=== PATIENT | female | born 1960 | race Caucasian/White ===

== ENCOUNTER 2020-01-28 23:01 | Emergency (ER) | payer BC, OTHER ==
[~2020-01-28] VITALS: Ht 152.4 cm; Wt 55.5 kg
[2020-01-28] MEDS ORDERED: ALBUTEROL/IPRATROPIUM 2.5MG/0.5MG, 3 ML ONE (23:24)
[2020-01-28] MEDS ORDERED: methylPREDNISolone SOD SUCC 125 MG/2 ML ONE (23:24)
[2020-01-28] MEDS ORDERED: LORazepam 2 MG/ML, 1ML ONE (23:27)
--- NOTE | 2020-01-28 23:27 | NUR ---
THIS TECH DID EKG
[2020-01-28] MEDS ORDERED: SODIUM CHLORIDE FLUSH 10ML SYR IVF ONE (23:30)
[2020-01-28] MEDS ORDERED: LORazepam 2 MG/ML, 1ML IV ONE (23:30)
[2020-01-28] MEDS ORDERED: ALBUTEROL/IPRATROPIUM 2.5MG/0.5MG, 3 ML NPPB ONE (23:30)
[2020-01-28] MEDS ORDERED: methylPREDNISolone SOD SUCC 125 MG/2 ML IV ONE (23:30)
--- NOTE | 2020-01-28 23:42 | NUR ---
Summary note: Patient came in via [facility], having worstening sob throughout the day. patient has history of copd and takes albuterol at home. [facility] gave patient 1 albuterol and 2 duo neb tx, and placed IV. Patient placed on all monitors, ekg taken, CXR taken, and medicated per [facility].
[2020-01-28 23:46] LABS: BASOPHILS # (AUTO) 0.02 x10^3/uL (0-0.1); BASOPHILS % (AUTO) 1 % (0-1); EOSINOPHILS # (AUTO) 0.07 x10^3/uL (0-0.4); EOSINOPHILS % (AUTO) 2 % (1-7); LYMPHOCYTES # (AUTO) 1.42 x10^3/uL (1-3.4); LYMPHOCYTES % (AUTO) 39 % (22-44); MD NO; MEAN CORPUSCULAR HEMOGLOBIN 35.8 pg (27.0-34.8); MEAN CORPUSCULAR HGB CONC 33.9 g/dL (32.4-35.8); MEAN CORPUSCULAR VOLUME 105.7 fL (80-100); MEAN PLATELET VOLUME 7.2 fL (7.4-10.4); MONOCYTES # (AUTO) 0.42 x10^3/uL (0.2-0.8); MONOCYTES % (AUTO) 12 % (2-9); NEUTROPHILS # (AUTO) 1.71 x10^3/uL (1.8-6.8); NEUTROPHILS % (AUTO) 47 % (42-75); PLATELET COUNT 133 x10^3/uL (130-400); RED BLOOD COUNT 4.02 x10^6/uL (3.82-5.3); RED CELL DISTRIBUTION WIDTH 14.7 % (9.6-15.2)
[2020-01-28 23:55] LABS: ALBUMIN 3.8 g/dL (3.4-5.0); ANION GAP 18 mmol/L (5-15); CALCIUM 8.6 mg/dL (8.5-10.1); CHLORIDE 101 mmol/L (98-107); CREATININE 0.46 mg/dL (0.55-1.02)
[2020-01-28 23:59] LABS: TROPONIN I < 0.015 ng/mL (0.000-0.045)
[2020-01-29] MEDS ORDERED: BENZONATATE 100 MG CAPSULE ONE (00:13)
--- NOTE | 2020-01-29 00:20 | NUR ---
PATIENT PLACED ON 2L 02, PATIENT 88% ON RA. PATIENT STATES FEELING BETTER.
[2020-01-29] MEDS ORDERED: BENZONATATE 100 MG CAPSULE PO ONE (00:30)
[2020-01-29 00:44] VITALS: BP 114/63
--- NOTE | 2020-01-29 00:57 | NUR ---
DR. GARRETT IN TO RE-EVAL PT. AND DISCUSS PLAN FOR ADMISSION. PT. IS REFUSING ADMISSION AT THIS TIME. PT. REQUESTING RX FOR MEDS TO GO HOME WITH VS. ADMISSION. DR. GARRETT DISCUSSED ALL RISKS. PT. ENCOURAGED TO COME BACK TO ED FOR ANY FURTHER CONCERNS.
[2020-01-29] MEDS ORDERED: POTASSIUM CHLORIDE 20 MEQ TAB.ER.PRT PO ONE (01:00)
[2020-01-29] MEDS ORDERED: POTASSIUM CHLORIDE 20 MEQ TAB.ER.PRT ONE (01:03)
--- NOTE | 2020-01-29 01:13 | NUR ---
PATIENT STATES SHE DOES NOT WANT TO GO [facility] BUT NEEDS TO GO HOME TO HER . SHE STATES SHE UNDERSTANDS THE RISKS AND SIGNED THE AMA PAPERS. PATIENT GIVEN PRESCRIPTIONS AND PAPERWORK.
[2020-01-30] MEDS ORDERED: ALBU8.5H8 INH (20:47)
[2020-01-30] MEDS ORDERED: PREDNISONE DOSE PACK (20:47)
== END 2020-01-29 01:47 | disposition left against medical advice (07) ==
LOC: ED 01-29 01:25
DX: J44.1 Chronic obstructive pulmonary disease with (acute) exacerbation (principal); R06.00 Dyspnea, unspecified; R09.02 Hypoxemia; R05 Cough; R60.0 Localized edema; R00.0 Tachycardia, unspecified; Z87.891 Personal history of nicotine dependence
CPT/HCPCS: 36415; 71045; 80048; 82040; 83880; 84484; 85025; 93005; 94640; 96374; 96375; 99285; J2060; J2930

== ENCOUNTER 2020-01-30 17:55 | Inpatient (IN) | payer OTHER ==
[~2020-01-30] VITALS: Ht 152.4 cm; Wt 52.1 kg
--- NOTE | 2020-01-30 19:06 | NUR ---
PT ON ALL ROOM MONITORING. PT FINISHED NEB TX STARTED BY SHAW. PT STATES NO RELIEF WITH NEBS, REPORTS OF 3 NEB TXS CELL TESTER AND FREQUENT USE OF ALBUTEROL INHALER AT HOME. PT STATES NO OXYGEN USE AT HOME, RA SAT 92%. PT REPORTS OF FEELING A "PANIC ATTACK" AND HAS HX OF SAME. PT APPEARS ANXIOUS, RR 19, AND ABLE TO SPEAK FULL SENTENCES. VS UPDATED IN COMPUTER.
[2020-01-30] MEDS ORDERED: LORazepam 2 MG/ML, 1ML ONE (19:15)
--- NOTE | 2020-01-30 19:24 | NUR ---
PT REFUSING NEB TX. STATES SHE HAD TWO NEBS BY [facility], ALBUTEROL INH TWO PUFFS EVERY HOUR AT HOME, AND "I ALSO TOOK MORE THAN I WAS SUPPOSED TO OF MY PREDNISONE". PT ASKING FOR ATIVAN. ERP NOTIFIED, ATIVAN ORDER OBTAINED AND GIVEN. WATER AND WARM BLANKET PROVIDED TO PT ON REQUEST. CALL LIGHT WITHIN REACH.
[2020-01-30] MEDS: ALBUTEROL SULFATE 2.5 MG/3 ML NPPB ONE ×2 (19:26→20:44)
[2020-01-30 19:29] LABS: BASOPHILS % (AUTO) 0 % (0-1); EOSINOPHILS % (AUTO) 0 % (1-7); LYMPHOCYTES # (AUTO) 0.23 x10^3/uL (1-3.4); LYMPHOCYTES % (AUTO) 4 % (22-44); MD NO; MEAN CORPUSCULAR HEMOGLOBIN 35.7 pg (27.0-34.8); MEAN CORPUSCULAR HGB CONC 33.6 g/dL (32.4-35.8); MEAN CORPUSCULAR VOLUME 106.4 fL (80-100); MEAN PLATELET VOLUME 7.5 fL (7.4-10.4); MONOCYTES # (AUTO) 0.16 x10^3/uL (0.2-0.8); MONOCYTES % (AUTO) 3 % (2-9); NEUTROPHILS # (AUTO) 4.73 x10^3/uL (1.8-6.8); NEUTROPHILS % (AUTO) 92 % (42-75); PLATELET COUNT 135 x10^3/uL (130-400); RED BLOOD COUNT 3.69 x10^6/uL (3.82-5.3); RED CELL DISTRIBUTION WIDTH 15.1 % (9.6-15.2)
[2020-01-30] MEDS ORDERED: LORazepam 2 MG/ML, 1ML IVPush ONE (19:30)
[2020-01-30 19:32] LABS: ALBUMIN 3.8 g/dL (3.4-5.0); ANION GAP 15 mmol/L (5-15); CALCIUM 8.4 mg/dL (8.5-10.1); CHLORIDE 98 mmol/L (98-107); CREATININE 0.48 mg/dL (0.55-1.02)
[2020-01-30 19:36] LABS: TROPONIN I < 0.015 ng/mL (0.000-0.045)
--- NOTE | 2020-01-30 20:32 | NUR ---
PT AMBULATED TO BR WITH STEADY GAIT. PT STATES SHE'S FEELING "MUCH BETTER AND RELAXED". VSS/UPDATED IN COMPUTER. MED REC COMPLETED TO BEST OF PT'S ABILITY. CALL LIGHT WITHIN REACH.
[2020-01-30] MEDS ORDERED: ALBUTEROL/IPRATROPIUM 2.5MG/0.5MG, 3 ML ONE (20:36)
--- NOTE | 2020-01-30 20:45 | NUR ---
PER ERP, OKAY TO GIVE NEB TX, PT AGREES NOW. AWAITING ADMIT ORDERS.
[2020-01-30] MEDS ORDERED: PREDNISONE DOSE PACK (20:47)
[2020-01-30] MEDS ORDERED: ALBU8.5H8 INH (20:47)
--- NOTE | 2020-01-30 20:56 | NUR ---
REPORT RECEIVED FROM MAX HAN. PLAN OF CARE DISCUSSED
--- NOTE | 2020-01-30 20:57 | NUR ---
REPORT TO LOLIS, TRANSFER OF CARE AT THIS TIME.
[2020-01-30] MEDS ORDERED: MAGNESIUM SULFATE PMX 2GM/50ML 50 ML IV ONE ×2 (21:00→21:30)
[2020-01-30] MEDS ORDERED: MAGNESIUM SULFATE PMX 2GM/50ML 50 ML ONE (21:03)
--- NOTE | 2020-01-30 21:14 | NUR ---
IV MAGNESIUM INFUSION STARTED AT THIS TIME, TOLERATING WELL
[2020-01-30] MEDS ORDERED: GUAIFENESIN/DM 200-20MG, 10ML UDC PO PRN (22:00)
[2020-01-30] MEDS ORDERED: methylPREDNISolone SOD SUCC 125 MG/2 ML IVPush ONE (22:00)
[2020-01-30] MEDS ORDERED: BISACODYL 10 MG SUPP PR PRN (22:00)
[2020-01-30] MEDS ORDERED: POLYETHYLENE GLYCOL 17 GM PACKET PO PRN (22:00)
[2020-01-30] MEDS ORDERED: ALBUTEROL HFA 90 MCG/SPRAY INH PRN (22:30)
--- NOTE | 2020-01-30 23:31 | NUR ---
REPORT GIVEN TO MAX HINTON. PLAN OF CARE DISCUSSED
[2020-01-31 00:19] VITALS: BP 117/74
[2020-01-31] MEDS: HEPARIN 5,000 UNITS/ML, 1ML SQ SCH ×3 (01:00→16:33)
[2020-01-31] MEDS: SODIUM CHLORIDE FLUSH 10ML SYR IVF SCH ×3 (01:31→20:19)
[2020-01-31 06:04] LABS: BASOPHILS # (AUTO) 0.01 x10^3/uL (0-0.1); BASOPHILS % (AUTO) 0 % (0-1); EOSINOPHILS % (AUTO) 0 % (1-7); LYMPHOCYTES # (AUTO) 0.18 x10^3/uL (1-3.4); LYMPHOCYTES % (AUTO) 4 % (22-44); MD NO; MEAN CORPUSCULAR HEMOGLOBIN 35.7 pg (27.0-34.8); MEAN CORPUSCULAR VOLUME 104.9 fL (80-100); MEAN PLATELET VOLUME 7.7 fL (7.4-10.4); MONOCYTES # (AUTO) 0.16 x10^3/uL (0.2-0.8); MONOCYTES % (AUTO) 4 % (2-9); NEUTROPHILS # (AUTO) 4.21 x10^3/uL (1.8-6.8); NEUTROPHILS % (AUTO) 92 % (42-75); PLATELET COUNT 125 x10^3/uL (130-400); RED BLOOD COUNT 3.51 x10^6/uL (3.82-5.3); RED CELL DISTRIBUTION WIDTH 14.9 % (9.6-15.2)
[2020-01-31 06:16] LABS: ANION GAP 13 mmol/L (5-15); CALCIUM 8.2 mg/dL (8.5-10.1); CHLORIDE 101 mmol/L (98-107); CREATININE 0.48 mg/dL (0.55-1.02)
[2020-01-31 07:27] VITALS: BP 108/65
[2020-01-31] MEDS: methylPREDNISolone SOD SUCC 125 MG/2 ML IVPush SCH ×3 (08:36→20:18)
[2020-01-31] MEDS: FLUTICASONE/VILANTEROL 100-25MCG/INH INH SCH (08:37)
[2020-01-31] MEDS: ALBUTEROL HFA 90 MCG/SPRAY INH SCH ×4 (08:38→20:00)
[2020-01-31] MEDS: SENNA/DOCUSATE TABLET PO SCH (08:39)
[2020-01-31] MEDS ORDERED: MELATONIN 3 MG TABLET PO PRN (09:00)
[2020-01-31] MEDS: ONDANSETRON ODT 4 MG PO PRN ×2 (10:33→22:13)
[2020-01-31] MEDS: GUAIFENESIN ER 600 MG TABLET PO SCH ×2 (10:34→20:18)
[2020-01-31 13:32] VITALS: BP 130/74
[2020-01-31] MEDS: ACETAMINOPHEN 325 MG TABLET PO PRN ×2 (13:34→20:18)
[2020-01-31] MEDS ORDERED: IBUPROFEN 200 MG TABLET PO PRN (15:30)
[2020-01-31 19:07] VITALS: BP 149/77
[2020-01-31] MEDS ORDERED: OMEPRAZOLE 20 MG CAPSULE.DR ONE (20:15)
[2020-01-31] MEDS: OMEPRAZOLE 20 MG CAPSULE.DR PO SCH (20:18)
[2020-01-31] MEDS ORDERED: IBUPROFEN 600 MG TABLET PO PRN (20:30)
[2020-01-31] MEDS: BUTALB/APAP/CAFFEINE 50MG/325MG/40MG PO PRN (22:13)
[2020-02-01] MEDS: HEPARIN 5,000 UNITS/ML, 1ML SQ SCH ×3 (01:34→17:54)
[2020-02-01] MEDS: methylPREDNISolone SOD SUCC 125 MG/2 ML IVPush SCH ×2 (01:34→08:22)
[2020-02-01 02:13] VITALS: BP 121/64
[2020-02-01] MEDS: OMEPRAZOLE 20 MG CAPSULE.DR PO SCH (06:19)
[2020-02-01 06:36] VITALS: BP 121/64
[2020-02-01] MEDS: ALBUTEROL HFA 90 MCG/SPRAY INH SCH ×4 (07:00→20:39)
[2020-02-01] MEDS: SENNA/DOCUSATE TABLET PO SCH (08:16)
[2020-02-01] MEDS: CALCIUM CARBONATE 500 MG TABLET PO SCH ×2 (08:16→20:39)
[2020-02-01] MEDS: FLUTICASONE/VILANTEROL 100-25MCG/INH INH SCH (08:16)
[2020-02-01] MEDS: GUAIFENESIN ER 600 MG TABLET PO SCH ×2 (08:16→20:39)
[2020-02-01] MEDS: BUTALB/APAP/CAFFEINE 50MG/325MG/40MG PO PRN (08:21)
[2020-02-01] MEDS: SODIUM CHLORIDE FLUSH 10ML SYR IVF SCH ×2 (09:00→20:39)
[2020-02-01 13:07] VITALS: BP 107/67
[2020-02-01] MEDS: AZITHROMYCIN 500 MG TABLET PO SCH (15:27)
[2020-02-01] MEDS ORDERED: MAGNESIUM CITRATE 300ML ORAL SOL PO PRN (17:00)
[2020-02-01 18:32] VITALS: BP 109/67
[2020-02-02] MEDS: TEMAZEPAM 15 MG CAPSULE PO PRN ×2 (00:32→23:00)
[2020-02-02 01:30] VITALS: BP 97/61
[2020-02-02] MEDS: HEPARIN 5,000 UNITS/ML, 1ML SQ SCH ×3 (01:30→17:04)
[2020-02-02] MEDS: OMEPRAZOLE 20 MG CAPSULE.DR PO SCH (04:39)
[2020-02-02] MEDS: ALBUTEROL HFA 90 MCG/SPRAY INH SCH ×4 (04:39→20:00)
[2020-02-02 05:18] LABS: BASOPHILS # (AUTO) 0.01 x10^3/uL (0-0.1); BASOPHILS % (AUTO) 0 % (0-1); EOSINOPHILS # (AUTO) 0.01 x10^3/uL (0-0.4); EOSINOPHILS % (AUTO) 0 % (1-7); LYMPHOCYTES # (AUTO) 0.99 x10^3/uL (1-3.4); LYMPHOCYTES % (AUTO) 24 % (22-44); MD NO; MEAN CORPUSCULAR HEMOGLOBIN 35.5 pg (27.0-34.8); MEAN CORPUSCULAR HGB CONC 33.5 g/dL (32.4-35.8); MEAN PLATELET VOLUME 7.9 fL (7.4-10.4); MONOCYTES # (AUTO) 0.37 x10^3/uL (0.2-0.8); MONOCYTES % (AUTO) 9 % (2-9); NEUTROPHILS # (AUTO) 2.76 x10^3/uL (1.8-6.8); NEUTROPHILS % (AUTO) 67 % (42-75); PLATELET COUNT 126 x10^3/uL (130-400); RED CELL DISTRIBUTION WIDTH 14.5 % (9.6-15.2)
[2020-02-02 05:29] LABS: ANION GAP 8 mmol/L (5-15); CALCIUM 8.4 mg/dL (8.5-10.1); CHLORIDE 97 mmol/L (98-107)
[2020-02-02 05:30] LABS: CREATININE 0.57 mg/dL (0.55-1.02)
[2020-02-02] MEDS: ALBUTEROL/IPRATROPIUM 2.5MG/0.5MG, 3 ML HHN SCH ×3 (06:30→20:00)
[2020-02-02 07:43] VITALS: BP 105/67
[2020-02-02] MEDS: GUAIFENESIN ER 600 MG TABLET PO SCH ×2 (08:06→19:38)
[2020-02-02] MEDS: AZITHROMYCIN 500 MG TABLET PO SCH (08:06)
[2020-02-02] MEDS: SENNA/DOCUSATE TABLET PO SCH (08:06)
[2020-02-02] MEDS: CALCIUM CARBONATE 500 MG TABLET PO SCH ×2 (08:06→19:38)
[2020-02-02] MEDS: SODIUM CHLORIDE FLUSH 10ML SYR IVF SCH ×2 (08:07→19:39)
[2020-02-02] MEDS: FLUTICASONE/VILANTEROL 100-25MCG/INH INH SCH (08:13)
[2020-02-02 12:17] VITALS: BP 94/59
[2020-02-02 19:00] VITALS: BP 115/73
[2020-02-03] MEDS: HEPARIN 5,000 UNITS/ML, 1ML SQ SCH ×3 (01:26→17:42)
[2020-02-03 01:27] VITALS: BP 145/83
[2020-02-03] MEDS: ALBUTEROL/IPRATROPIUM 2.5MG/0.5MG, 3 ML HHN SCH ×4 (02:00→20:00)
[2020-02-03 05:00] LABS: ANION GAP 7 mmol/L (5-15); CALCIUM 8.2 mg/dL (8.5-10.1); CHLORIDE 99 mmol/L (98-107); CREATININE 0.39 mg/dL (0.55-1.02)
[2020-02-03] MEDS: OMEPRAZOLE 20 MG CAPSULE.DR PO SCH (06:00)
[2020-02-03] MEDS: ALBUTEROL HFA 90 MCG/SPRAY INH SCH ×4 (06:13→20:00)
[2020-02-03] MEDS: GUAIFENESIN ER 600 MG TABLET PO SCH ×2 (08:09→20:41)
[2020-02-03] MEDS: AZITHROMYCIN 500 MG TABLET PO SCH (08:09)
[2020-02-03] MEDS: CALCIUM CARBONATE 500 MG TABLET PO SCH ×2 (08:09→20:41)
[2020-02-03] MEDS: FLUTICASONE/VILANTEROL 100-25MCG/INH INH SCH (08:09)
[2020-02-03] MEDS: SODIUM CHLORIDE FLUSH 10ML SYR IVF SCH ×2 (08:10→20:42)
[2020-02-03] MEDS: SENNA/DOCUSATE TABLET PO SCH (08:10)
[2020-02-03 08:15] VITALS: BP 97/61
[2020-02-03 13:35] VITALS: BP 129/74
[2020-02-03] MEDS ORDERED: CEFTRIAXONE PMX 1GM/50ML 50 ML IV SCH (18:00)
[2020-02-03] MEDS ORDERED: methylPREDNISolone SOD SUCC 40 MG/ML IV SCH (18:00)
[2020-02-03 18:42] VITALS: BP 148/83
[2020-02-03] MEDS: methylPREDNISolone SOD SUCC 40 MG/ML IV SCH (20:41)
[2020-02-03] MEDS: ONDANSETRON ODT 4 MG PO PRN (20:41)
[2020-02-03] MEDS: TEMAZEPAM 15 MG CAPSULE PO PRN (20:48)
[2020-02-03] MEDS: CEFTRIAXONE PMX 1GM/50ML 50 ML IV SCH (21:43)
[2020-02-04] MEDS: HEPARIN 5,000 UNITS/ML, 1ML SQ SCH ×3 (00:51→17:47)
[2020-02-04 01:36] VITALS: BP 149/83
[2020-02-04] MEDS: ALBUTEROL/IPRATROPIUM 2.5MG/0.5MG, 3 ML HHN SCH (02:00)
[2020-02-04] MEDS: methylPREDNISolone SOD SUCC 40 MG/ML IV SCH ×3 (03:51→20:34)
[2020-02-04] MEDS: OMEPRAZOLE 20 MG CAPSULE.DR PO SCH (04:24)
[2020-02-04 04:49] LABS: ANION GAP 10 mmol/L (5-15); CALCIUM 8.8 mg/dL (8.5-10.1); CHLORIDE 97 mmol/L (98-107); CREATININE 0.42 mg/dL (0.55-1.02)
[2020-02-04] MEDS: ALBUTEROL HFA 90 MCG/SPRAY INH SCH ×4 (06:39→20:00)
[2020-02-04 07:05] VITALS: BP 135/84
[2020-02-04] MEDS: CALCIUM CARBONATE 500 MG TABLET PO SCH ×2 (09:49→20:34)
[2020-02-04] MEDS: SENNA/DOCUSATE TABLET PO SCH (09:49)
[2020-02-04] MEDS: GUAIFENESIN ER 600 MG TABLET PO SCH ×2 (09:49→20:34)
[2020-02-04] MEDS: FLUTICASONE/VILANTEROL 100-25MCG/INH INH SCH (09:50)
[2020-02-04] MEDS: SODIUM CHLORIDE FLUSH 10ML SYR IVF SCH ×2 (09:50→20:34)
[2020-02-04] MEDS: AZITHROMYCIN 500 MG TABLET PO SCH (09:54)
[2020-02-04] MEDS ORDERED: OMNIPAQUE 350 MG/ML, 75ML BOTTLE ONE (12:49)
[2020-02-04 14:25] VITALS: BP 137/85
[2020-02-04] MEDS ORDERED: GADOTERATE 7.5 MMOL/15 ML SYR ONE (14:36)
[2020-02-04 20:00] VITALS: BP 135/87
[2020-02-04] MEDS: CEFTRIAXONE PMX 1GM/50ML 50 ML IV SCH (20:34)
[2020-02-04] MEDS: TEMAZEPAM 15 MG CAPSULE PO PRN (21:31)
[2020-02-05] MEDS: HEPARIN 5,000 UNITS/ML, 1ML SQ SCH ×3 (01:00→16:58)
[2020-02-05 01:59] VITALS: BP 147/63
[2020-02-05] MEDS: methylPREDNISolone SOD SUCC 40 MG/ML IV SCH (04:48)
[2020-02-05] MEDS: OMEPRAZOLE 20 MG CAPSULE.DR PO SCH (05:56)
[2020-02-05] MEDS: ALBUTEROL HFA 90 MCG/SPRAY INH SCH ×4 (05:56→20:00)
[2020-02-05 07:23] VITALS: BP 146/89
[2020-02-05] MEDS: FLUTICASONE/VILANTEROL 100-25MCG/INH INH SCH (09:00)
[2020-02-05] MEDS: SENNA/DOCUSATE TABLET PO SCH (09:00)
[2020-02-05] MEDS: CALCIUM CARBONATE 500 MG TABLET PO SCH ×2 (09:00→21:20)
[2020-02-05] MEDS: SODIUM CHLORIDE FLUSH 10ML SYR IVF SCH ×2 (09:00→21:00)
[2020-02-05] MEDS: AZITHROMYCIN 500 MG TABLET PO SCH (09:34)
[2020-02-05] MEDS: GUAIFENESIN ER 600 MG TABLET PO SCH ×2 (09:35→21:20)
[2020-02-05 12:38] VITALS: BP 160/94
[2020-02-05 12:53] VITALS: BP 137/80
[2020-02-05] MEDS: OXYcodone IR 5MG TABLET PO PRN (18:41)
[2020-02-05 19:12] VITALS: BP 164/76
[2020-02-05] MEDS: CEFTRIAXONE PMX 1GM/50ML 50 ML IV SCH (20:08)
[2020-02-05] MEDS: TEMAZEPAM 15 MG CAPSULE PO PRN (21:21)
[2020-02-06] MEDS: HEPARIN 5,000 UNITS/ML, 1ML SQ SCH ×3 (01:00→15:52)
[2020-02-06 02:11] VITALS: BP 135/67
[2020-02-06] MEDS ORDERED: methylPREDNISolone SOD SUCC 40 MG/ML IV SCH (05:00)
[2020-02-06] MEDS: OMEPRAZOLE 20 MG CAPSULE.DR PO SCH (06:00)
[2020-02-06 06:50] VITALS: BP 133/72
[2020-02-06] MEDS: ALBUTEROL HFA 90 MCG/SPRAY INH SCH ×4 (07:00→20:00)
[2020-02-06 07:23] LABS: BASOPHILS # (AUTO) 0.01 x10^3/uL (0-0.1); BASOPHILS % (AUTO) 0 % (0-1); EOSINOPHILS # (AUTO) 0.05 x10^3/uL (0-0.4); EOSINOPHILS % (AUTO) 2 % (1-7); LYMPHOCYTES # (AUTO) 1.22 x10^3/uL (1-3.4); LYMPHOCYTES % (AUTO) 36 % (22-44); MD NO; MEAN CORPUSCULAR HEMOGLOBIN 35.3 pg (27.0-34.8); MEAN CORPUSCULAR HGB CONC 33.3 g/dL (32.4-35.8); MEAN CORPUSCULAR VOLUME 105.9 fL (80-100); MEAN PLATELET VOLUME 7.8 fL (7.4-10.4); MONOCYTES # (AUTO) 0.39 x10^3/uL (0.2-0.8); MONOCYTES % (AUTO) 11 % (2-9); NEUTROPHILS % (AUTO) 51 % (42-75); PLATELET COUNT 126 x10^3/uL (130-400); RED BLOOD COUNT 3.88 x10^6/uL (3.82-5.3); RED CELL DISTRIBUTION WIDTH 14.1 % (9.6-15.2)
[2020-02-06] MEDS: CALCIUM CARBONATE 500 MG TABLET PO SCH ×2 (09:00→21:00)
[2020-02-06] MEDS: SENNA/DOCUSATE TABLET PO SCH (09:00)
[2020-02-06] MEDS: FLUTICASONE/VILANTEROL 100-25MCG/INH INH SCH (09:19)
[2020-02-06] MEDS: GUAIFENESIN ER 600 MG TABLET PO SCH ×2 (09:21→21:00)
[2020-02-06] MEDS: AZITHROMYCIN 500 MG TABLET PO SCH (09:21)
[2020-02-06] MEDS: SODIUM CHLORIDE FLUSH 10ML SYR IVF SCH ×2 (09:21→21:00)
[2020-02-06 12:39] VITALS: BP 122/69
[2020-02-06] MEDS: LACTOBACILLUS CHEW TABLET PO SCH ×2 (15:52→21:00)
[2020-02-06 19:02] VITALS: BP 107/82
[2020-02-06] MEDS: OXYcodone IR 5MG TABLET PO PRN (19:23)
[2020-02-06] MEDS ORDERED: TEMA15CA PO ×2 (19:44→22:32)
[2020-02-06] MEDS ORDERED: OXYC5TAB2 PO ×2 (19:44→22:32)
[2020-02-06] MEDS ORDERED: FLUT1AER INH ×2 (19:44→22:32)
[2020-02-06] MEDS ORDERED: ALPR0.5T PO ×2 (19:44→22:32)
[2020-02-06] MEDS ORDERED: BUTA-218 PO (19:44)
[2020-02-06] MEDS ORDERED: ONDA4TAB7 PO ×2 (19:44→22:32)
[2020-02-06] MEDS: CEFTRIAXONE PMX 1GM/50ML 50 ML IV SCH (21:00)
[2020-02-06] MEDS ORDERED: AMOX1TAB64 PO (22:32)
[2020-02-06] MEDS ORDERED: ALBU8.5H8 INH (22:32)
[2020-02-06] MEDS ORDERED: ACID1TAB7 PO (22:32)
[2020-02-06] MEDS ORDERED: POLY17PO5 PO (22:32)
[2020-02-06] MEDS ORDERED: OMEP-110 PO (22:32)
[2020-02-07] MEDS: HEPARIN 5,000 UNITS/ML, 1ML SQ SCH ×3 (00:20→16:19)
[2020-02-07] MEDS: TEMAZEPAM 15 MG CAPSULE PO PRN (00:20)
[2020-02-07] MEDS: LACTOBACILLUS CHEW TABLET PO SCH ×4 (00:23→16:19)
[2020-02-07] MEDS: GUAIFENESIN ER 600 MG TABLET PO SCH ×2 (00:23→09:14)
[2020-02-07] MEDS: CALCIUM CARBONATE 500 MG TABLET PO SCH ×2 (00:23→09:14)
[2020-02-07 00:33] VITALS: BP 106/52
[2020-02-07] MEDS: OMEPRAZOLE 20 MG CAPSULE.DR PO SCH ×2 (06:00→09:14)
[2020-02-07] MEDS: ALBUTEROL HFA 90 MCG/SPRAY INH SCH ×3 (07:00→15:00)
[2020-02-07 07:38] VITALS: BP 105/62
[2020-02-07] MEDS: SODIUM CHLORIDE FLUSH 10ML SYR IVF SCH (09:00)
[2020-02-07] MEDS: SENNA/DOCUSATE TABLET PO SCH (09:14)
[2020-02-07] MEDS: AZITHROMYCIN 500 MG TABLET PO SCH (09:14)
[2020-02-07] MEDS: FLUTICASONE/VILANTEROL 100-25MCG/INH INH SCH (09:15)
[2020-02-07 14:32] VITALS: BP 122/81
== END 2020-02-07 18:08 | disposition home or self-care (01) | DRG 202 ==
LOC: ED 18:49 → EDIP 20:59 → 4NE 23:51 → 3N 02-05 10:44
PROVIDERS: ADMIT Family Medicine; ATTEND Internal Medicine
DX: J20.9 Acute bronchitis, unspecified (principal); J44.1 Chronic obstructive pulmonary disease with (acute) exacerbation; E87.1 Hypo-osmolality and hyponatremia; J93.9 Pneumothorax, unspecified; D69.6 Thrombocytopenia, unspecified; D75.89 Other specified diseases of blood and blood-forming organs; E83.42 Hypomagnesemia; F41.9 Anxiety disorder, unspecified; G47.00 Insomnia, unspecified; G62.9 Polyneuropathy, unspecified; I34.1 Nonrheumatic mitral (valve) prolapse; J43.0 Unilateral pulmonary emphysema [MacLeod's syndrome]; J43.9 Emphysema, unspecified; M06.9 Rheumatoid arthritis, unspecified; M48.061 Spinal stenosis, lumbar region without neurogenic claudication; M51.36 Other intervertebral disc degeneration, lumbar region; M53.3 Sacrococcygeal disorders, not elsewhere classified; M81.0 Age-related osteoporosis without current pathological fracture; Z82.49 Family history of ischemic heart disease and other diseases of the circulatory system; Z86.73 Personal history of transient ischemic attack (TIA), and cerebral infarction without residual deficits; Z87.891 Personal history of nicotine dependence; Z88.2 Allergy status to sulfonamides; Z88.8 Allergy status to other drugs, medicaments and biological substances; Z79.899 Other long term (current) drug therapy
CPT/HCPCS: 36415; 73630; 84155; 96365; 96366; 99285; J7613; 71275; 72157; 72158; 72192; 80048; 82040; 82607; 83036; 83735; 84165; 84484; 85025; 93005; 93306; 94640; G0378; J0696; J1644; Q0162; Q9967; A9575; J2060; J2920; J2930; J3475; J7512

== ENCOUNTER 2020-10-10 15:54 | Emergency (ER) | payer OTHER ==
[~2020-10-10] VITALS: Ht 152.4 cm; Wt 51.4 kg
[~2020-10-10 15:54] MED LIST: ACID1TAB7 PO; ALBU8.5H8 INH; ALPR0.5T PO; AMOX1TAB64 PO; BUTA-218 PO; FLUT1AER INH; OMEP-110 PO; ONDA4TAB7 PO; OXYC5TAB2 PO; POLY17PO5 PO; PREDNISONE DOSE PACK; TEMA15CA PO
--- NOTE | 2020-10-10 16:06 | NUR ---
TASK RN: [facility] FROM HOME C/O PETERSEN, DIZZY + NAUSEA X 3 DAYS WITH WORSENING SYMPTOMS TODAY. INITIAL BP BY EMS 230/150 10MG METOPROLOL GIVEN WITH REPEAT BP 196/100 AND PT RPTS PETERSEN PAIN "A LITTLE BETTER" "NO LONGER THROBBING" ALL MONITORS PLACED AND CALL LIGHT W/I REACH. SBAR RPT TO [facility]
[2020-10-10] MEDS ORDERED: FLUT1DIS IH (16:11)
--- NOTE | 2020-10-10 16:24 | NUR ---
CHRISTINA [phone] CALLED AND INFORMED TO PTS REQUEST.
[2020-10-10] MEDS ORDERED: hydrALAzine 20 MG/ML, 1ML ONE (16:52)
[2020-10-10] MEDS ORDERED: ALBUTEROL/IPRATROPIUM 2.5MG/0.5MG, 3 ML ONE (16:52)
[2020-10-10] MEDS ORDERED: LORazepam 2 MG/ML, 1ML ONE (16:52)
[2020-10-10 16:57] LABS: BASOPHILS % (AUTO) 1 % (0-1); EOSINOPHILS % (AUTO) 2 % (1-7); LYMPHOCYTES % (AUTO) 25 % (22-44); MEAN CORPUSCULAR HEMOGLOBIN 34.9 pg (27.0-34.8); MEAN CORPUSCULAR HGB CONC 35.4 g/dL (32.4-35.8); MEAN PLATELET VOLUME 7.9 fL (7.4-10.4); MONOCYTES % (AUTO) 11 % (2-9); NEUTROPHILS % (AUTO) 61 % (42-75); PLATELET COUNT 170 x10^3/uL (130-400); RED BLOOD COUNT 4.39 x10^6/uL (3.82-5.3); RED CELL DISTRIBUTION WIDTH 13.5 % (9.6-15.2)
[2020-10-10 16:59] LABS: MD NO
[2020-10-10] MEDS ORDERED: SODIUM CHLORIDE FLUSH 10ML SYR IVF ONE ×2 (17:00→17:30)
[2020-10-10] MEDS ORDERED: hydrALAzine 20 MG/ML, 1ML IV ONE (17:00)
[2020-10-10] MEDS ORDERED: ALBUTEROL/IPRATROPIUM 2.5MG/0.5MG, 3 ML NPPB ONE (17:00)
[2020-10-10] MEDS ORDERED: LORazepam 2 MG/ML, 1ML IVPush ONE (17:00)
[2020-10-10 17:08] LABS: ALBUMIN 3.4 g/dL (3.4-5.0); ANION GAP 8 mmol/L (5-15); CALCIUM 8.3 mg/dL (8.5-10.1); CHLORIDE 98 mmol/L (98-107); CREATININE 0.61 mg/dL (0.55-1.02)
[2020-10-10 17:12] LABS: TROPONIN I < 0.015 ng/mL (0.000-0.045)
[2020-10-10] MEDS ORDERED: SODIUM CHLORIDE 0.9% 1,000ML IVBOLUS ONE (17:30)
--- NOTE | 2020-10-10 18:25 | NUR ---
BREAK RN: THIS RN SITTING UP IN BED. VSS. ORO.
[2020-10-10 19:02] VITALS: BP 151/83
== END 2020-10-10 19:12 | disposition home or self-care (01) ==
LOC: ED 18:50
DX: R42 Dizziness and giddiness (principal); R51.9 Headache, unspecified; R07.9 Chest pain, unspecified; I10 Essential (primary) hypertension; E87.1 Hypo-osmolality and hyponatremia; R94.31 Abnormal electrocardiogram [ECG] [EKG]; J44.9 Chronic obstructive pulmonary disease, unspecified
CPT/HCPCS: 36415; 71045; 80048; 82040; 84484; 85025; 93005; 94640; 96361; 96374; 96375; 99285; J0360; J2060; J7030

== ENCOUNTER 2020-10-13 13:30 | Emergency (ER) | payer OTHER ==
[~2020-10-13] VITALS: Ht 152.4 cm; Wt 51.5 kg
[~2020-10-13 13:30] MED LIST changes: +FLUT1DIS IH
[2020-10-13] MEDS ORDERED: ALBUTEROL/IPRATROPIUM 2.5MG/0.5MG, 3 ML ONE (13:53)
[2020-10-13] MEDS ORDERED: ALBUTEROL/IPRATROPIUM 2.5MG/0.5MG, 3 ML NPPB ONE (14:00)
--- NOTE | 2020-10-13 14:00 | NUR ---
Pt was seen here 3 days ago. Started new rx of lisinopril. Pt calls today for BP of 220/158. RA found to be 84-88%. Pt with hx of COPD and asthma. Pt states she feels much better with 2L of O2. Pt agrees to wait for CXR and then receive breathing tx.
[2020-10-13 14:09] LABS: BASOPHILS % (AUTO) 1 % (0-1); EOSINOPHILS % (AUTO) 1 % (1-7); LYMPHOCYTES % (AUTO) 24 % (22-44); MEAN CORPUSCULAR HEMOGLOBIN 34.4 pg (27.0-34.8); MEAN CORPUSCULAR HGB CONC 34.8 g/dL (32.4-35.8); MEAN PLATELET VOLUME 7.9 fL (7.4-10.4); MONOCYTES % (AUTO) 10 % (2-9); NEUTROPHILS % (AUTO) 65 % (42-75); PLATELET COUNT 186 x10^3/uL (130-400); RED BLOOD COUNT 4.59 x10^6/uL (3.82-5.3); RED CELL DISTRIBUTION WIDTH 13.7 % (9.6-15.2)
[2020-10-13 14:12] LABS: MD NO
[2020-10-13 14:13] LABS: ALBUMIN 3.7 g/dL (3.4-5.0); ANION GAP 10 mmol/L (5-15); CALCIUM 8.4 mg/dL (8.5-10.1); CHLORIDE 99 mmol/L (98-107); CREATININE 0.48 mg/dL (0.55-1.02)
--- NOTE | 2020-10-13 15:03 | NUR ---
MD Hopson back to bedside for reevaluation. Pt does not want to stay in hospital. Pt half way throuh breathing tx. Plan to finish, administer other meds and reevaulate.
[2020-10-13] MEDS ORDERED: AMLODIPINE 5 MG TABLET ONE (15:05)
--- NOTE | 2020-10-13 15:11 | NUR ---
Pt ambulatory to bathroom with steady gait. Duoneb finished.
[2020-10-13] MEDS ORDERED: AMLODIPINE 5 MG TABLET PO ONE (15:30)
[2020-10-13 16:08] VITALS: BP 149/72
== END 2020-10-13 16:22 | disposition home or self-care (01) ==
LOC: ED 16:16
DX: J44.1 Chronic obstructive pulmonary disease with (acute) exacerbation (principal); I10 Essential (primary) hypertension; Z87.891 Personal history of nicotine dependence
CPT/HCPCS: 36415; 71045; 80048; 82040; 83735; 83880; 85025; 93005; 94640; 99285; J7512

== ENCOUNTER 2020-10-16 15:39 | Emergency (ER) | payer OTHER ==
[~2020-10-16] VITALS: Ht 152.4 cm; Wt 51.0 kg
--- NOTE | 2020-10-16 15:50 | NUR ---
BIB [facility] FOR LOW OXYGEN LEVEL. PT STATES OXYGEN LEVEL ON OWN PULSE OX READ 82%. HX COPD, NO HOME OXYGEN, NO PCP. PT SEEN [facility] RECENTLY FOR SAME. PT OXYGEN 90-92% RA. PT SPEAKING IN FULL SENTENCED, NO RESP DISTRESS NOTED. PT CONNECTED TO MONITORING. CALL LIGHT IN REACH. EKG COMPLETE.
--- NOTE | 2020-10-16 16:11 | NUR ---
PT OXYGEN HAS BEEN STEADY AT 90% RA, NO RESP DISTRESS NOTED. PT HAS OWN PULSE OX SITTING ON FINGER WATCHING OXYGEN RATE. PT REQUESTING OXYGEN PLACED FOR COMFORT. 2L OXYGEN VIA NC ADMIN.
[2020-10-16] MEDS ORDERED: ALBUTEROL/IPRATROPIUM 2.5MG/0.5MG, 3 ML NPPB SCH (17:00)
--- NOTE | 2020-10-16 17:05 | NUR ---
PACKET FAXED TO [facility] FOR HOME O2
[2020-10-16] MEDS ORDERED: ALBUTEROL/IPRATROPIUM 2.5MG/0.5MG, 3 ML ONE (17:10)
--- NOTE | 2020-10-16 17:14 | NUR ---
JERMAINE TX ADMIN PER AUG.
--- NOTE | 2020-10-16 17:39 | NUR ---
SPOKE WITH [facility] AT AFTER HOURS FOR [facility]. PER [facility]CH DC PATIENT WITH OXYGEN FROM CLOSET AND HAVE PT CONTACT [facility] AFTER HOURS WHEN SHE GETS HOME
--- NOTE | 2020-10-16 17:59 | NUR ---
LIMA WITH [facility] CALLED BACK AND SAID THEY ARE DECLINING PT DUE TO INSURANCE. [facility]ED TO [facility]
[2020-10-16 18:08] VITALS: BP 137/73
--- NOTE | 2020-10-16 18:31 | NUR ---
CALLED [facility] TO SEE IF THEY RECEIVED PACKET. PER PERSON ANSWERING PHONE NEED TO FAX TO AFTER HOUR FAX [phone]. PACKET FAXED
--- NOTE | 2020-10-16 19:46 | NUR ---
PT DOESN'T WANT TO WAIT FOR RESPONSE FROM [facility]. PT GIVEN PRESCRIPTION FOR OXYGEN SIGNED BY JOHN AYALA. PT WILL CALL [facility] ON HER OWN. PT AMBULATED TO DC WITH STEADY GAIT.
== END 2020-10-16 19:49 | disposition home or self-care (01) ==
LOC: ED 16:32
DX: J44.1 Chronic obstructive pulmonary disease with (acute) exacerbation (principal); R09.02 Hypoxemia; I10 Essential (primary) hypertension; Z87.891 Personal history of nicotine dependence
CPT/HCPCS: 93005; 94640

== ENCOUNTER 2020-10-24 00:37 | Emergency (ER) | payer OTHER ==
[~2020-10-24] VITALS: Ht 152.4 cm; Wt 53.0 kg
--- NOTE | 2020-10-24 00:54 | NUR ---
CC OF DIZZYNESS AND HIGH BP AT HOME 200/119. PT REPORTS TAKING LISINOPRIL AND HAVING MANY STRESSORS AT HOME DUE TO HER SICK . PT HAS BEEN SEEN IN THE ER 4 TIMES RECENTLY AND WAS ADVISED ADMIT BUT PT DECIDED TO LEAVE AMA MULTIPLE TIMES DUE TO SICK .
[2020-10-24] MEDS ORDERED: LORazepam 1MG TABLET ONE (00:56)
[2020-10-24] MEDS ORDERED: LORazepam 1MG TABLET PO ONE (01:00)
[2020-10-24 01:56] VITALS: BP 101/53
== END 2020-10-24 03:13 | disposition home or self-care (01) ==
LOC: ED 03:01
DX: I10 Essential (primary) hypertension (principal); R51.9 Headache, unspecified; F41.1 Generalized anxiety disorder; Z72.9 Problem related to lifestyle, unspecified; J44.9 Chronic obstructive pulmonary disease, unspecified; Z87.891 Personal history of nicotine dependence
CPT/HCPCS: 99283